=== PATIENT | male | born 1985 | race Hispanic/Latino ===

== ENCOUNTER 2021-10-16 03:49 | Inpatient (IN) | payer OTHER, SELFPAY ==
[2021-10-16] MEDS ORDERED: Norepinephrine 8 MG/0.9% NS 250 ML ONE (04:16)
[2021-10-16] MEDS ORDERED: Tranexamic Acid 1,000 MG/10 ML VIAL ONE (04:24)
[2021-10-16] MEDS ORDERED: Calcium Chloride 1 GM/10 ML Abboject SYRINGE ONE ×2 (04:24→05:09)
[2021-10-16] MEDS ORDERED: Sterile Water 10 ML ONE (04:24)
[2021-10-16 04:27] LABS: #Basophils 0.1 thou/uL (0.0-0.2); #Eosinphils 0.1 thou/uL (0.0-0.7); #Lymphocytes 2.5 thou/uL (1.20-3.40); #Monocytes 0.7 thou/uL (0.11-0.59); #Neutrophils 2.8 thou/uL (1.40-6.50); %Monocytes 11.7 % (0.0-10.0); %Neutrophils 45.4 % (42.0-75.0); Hemoglobin 12.8 g/dL (14.0-18.0); Mean Corpuscular HGB CONC 31.2 g/dL (32.0-36.0); Mean Corpuscular Hemoglobin 31.7 pg (27.0-31.0); Mean Platelet Volume 7.4 fL (7.4-10.4); Platelet Count 181 thou/uL (130-400); RBC Distribution Width 12.1 % (11.5-14.5); Red Blood Cell (RBC) Count 4.05 mill/uL (4.70-6.10); White Blood Cell (WBC) Count 6.2 thou/uL (4.8-10.8)
[2021-10-16] MEDS ORDERED: Sodium Bicarb 50 MEQ/50 ML Abboject 8.4% SYRINGE ONE ×4 (04:30→05:18)
[2021-10-16 04:37] LABS: ALT (SGPT) 67 U/L (8-55); AST (SGOT) 39 U/L (5-34); Albumin 2.9 g/dL (3.5-5.0); Alkaline Phosphatase 62 U/L (40-110); BUN (Urea Nitrogen) 16 mg/dL (8.9-20.6); Bilirubin, Total 0.4 mg/dL (0.2-1.2); Calc. Creatinine Clearance 0 mL/min (70-130); Calcium 8.7 mg/dL (7.8-10.44); Chloride 112 mmol/L (98-107); Globulin 2.1 g/dL (2.4-3.5); Glucose 123 mg/dL (70-105); Potassium 4.1 mmol/L (3.5-5.1)
[2021-10-16 04:43] LABS: Calcium, Ionized (arterial) 0.78 mmol/L (1.12-1.30); Carboxyhemoglobin (COHb) 1.9 gm% (0.0-3.0); Hemoglobin (Hb) 12.9 g/dL (14.0-18.0); O2 Tension (PaO2), arterial 390.9 mmHg (80.0-100.0); Potassium - ABG Lab 5.04 mmol/L (3.70-5.30)
[2021-10-16 04:46] LABS: Puncture Site ALINE
[2021-10-16] MEDS ORDERED: Promethazine HCl 25 MG/ML VIAL IM PRN (04:52)
[2021-10-16] MEDS ORDERED: Ondansetron PF 4 MG/2 ML Vial IVP PRN (04:52)
[2021-10-16] MEDS ORDERED: Dextrose 5% in Water 1,000 ML IV PRN (04:52)
[2021-10-16] MEDS ORDERED: HumaLOG 300 UNITS/3 ML VIAL SC PRN (04:52)
[2021-10-16] MEDS ORDERED: Acetaminophen 325 MG TAB PO PRN (04:52)
[2021-10-16] MEDS ORDERED: Lorazepam 2 MG/ML VIAL SLOW IVP PRN ×2 (04:52→11:15)
[2021-10-16] MEDS ORDERED: Dextrose 50% Abboject 50 ML SYRINGE SLOW IVP PRN (04:52)
[2021-10-16] MEDS ORDERED: hydrALAZINE 20 MG/ML VIAL SLOW IVP PRN (04:52)
[2021-10-16] MEDS ORDERED: Morphine 2 MG/ML VIAL SLOW IVP PRN (04:52)
[2021-10-16 05:11] LABS: Carbon Dioxide Less than 8 mmol/L (22-29); Sodium 151 mmol/L (136-145)
[2021-10-16] MEDS ORDERED: Calcium Chloride 1 GM/10 ML Abboject SYRINGE IVP SCH (05:15)
[2021-10-16] MEDS ORDERED: Boostrix 0.5 ML (Tdap) VIAL ONE (05:17)
[2021-10-16] MEDS ORDERED: ceFAZolin (BATCH) 2 GM/100 ML BAG ONE (05:17)
[2021-10-16 05:41] LABS: Hemoglobin 12.8 g/dL (14.0-18.0); Mean Corpuscular HGB CONC 32.7 g/dL (32.0-36.0); Mean Corpuscular Hemoglobin 31.5 pg (27.0-31.0); Mean Corpuscular Volume 96.2 fL (78.0-98.0); Mean Platelet Volume 7.8 fL (7.4-10.4); Platelet Count 103 thou/uL (130-400); RBC Distribution Width 13.8 % (11.5-14.5); Red Blood Cell (RBC) Count 4.06 mill/uL (4.70-6.10); White Blood Cell (WBC) Count 27.1 thou/uL (4.8-10.8)
[2021-10-16 06:04] LABS: Alcohol 82 mg/dL (Less than 10); Anion Gap 30 mmol/L (10-20); BUN (Urea Nitrogen) 16 mg/dL (8.9-20.6); Calc. Creatinine Clearance 0 mL/min (70-130); Calcium 10.1 mg/dL (7.8-10.44); Carbon Dioxide 13 mmol/L (22-29); Chloride 105 mmol/L (98-107); Glucose 183 mg/dL (70-105); Magnesium 3.2 mg/dL (1.6-2.6); Phosphorus 10.1 mg/dL (2.3-4.7); Potassium 5.2 mmol/L (3.5-5.1); Sodium 143 mmol/L (136-145)
[2021-10-16 06:05] LABS: Lactic Acid Greater than 13.4 mmol/L (0.5-2.2)
[2021-10-16 06:06] LABS: Band 24 % (5-11); Hypochromia SLIGHT = 6-15 cells (100X) (0-5/hpf); Lymphocytes 21 % (21-51); MDiff Complete? YES; Monocytes 2 % (0-10); Neutrophil 52 % (42-75); Platelet Morphology Comment Appears Decreased; Reactive Lymphocytes 1 % (0-10)
[2021-10-16] MEDS ORDERED: Heparin 10,000 UNITS/ 10 ML VIAL ONE (06:29)
[2021-10-16] MEDS ORDERED: Fentanyl 100 MCG/2 ML VIAL ONE (06:52)
[2021-10-16] MEDS ORDERED: Propofol 1,000 MG/100 ML VIAL IV ONE (08:28)
[2021-10-16 08:29] LABS: Actual Bicarbonate (HCO3a) 15.8 mEq/L (22-28); Base Excess (BEa) -12.4 mEq/L (-2.0 to +3.0); CO2 Tension 44.4 mmHg (35.0-45.0); Calcium, Ionized (arterial) 1.15 mmol/L (1.12-1.30); Carboxyhemoglobin (COHb) 0.3 gm% (0.0-3.0); Hemoglobin (Hb) 15.1 g/dL (14.0-18.0); O2 Tension (PaO2), arterial 91.7 mmHg (80.0-100.0)
[2021-10-16 08:31] LABS: Puncture Site Arterial Line; pH, Arterial 7.17 (7.35-7.45)
[2021-10-16] MEDS: Sodium Chloride 0.9% 1,000 ML IV SCH ×4 (09:02→17:49)
[2021-10-16 09:05] LABS: Critical Call Chem-Lactate HX; Lactic Acid 8.8 mmol/L (0.5-2.2)
[2021-10-16 09:09] LABS: INR-International Normal Ratio 1.8; Prothrombin Time 21.6 sec (12.0-14.7)
[2021-10-16 09:10] LABS: PTT 56.4 sec (22.9-36.1)
[2021-10-16] MEDS ORDERED: Iopamidol 370 76% 100 ML VIAL ONE ×2 (09:15→09:41)
[2021-10-16] MEDS ORDERED: Sodium Bicarb 50 MEQ/50 ML VIAL IVP SCH (09:45)
[2021-10-16 09:48] LABS: Hemoglobin 14.8 g/dL (14.0-18.0); Mean Corpuscular HGB CONC 33.1 g/dL (32.0-36.0); Mean Corpuscular Hemoglobin 30.6 pg (27.0-31.0); Mean Corpuscular Volume 92.5 fL (78.0-98.0); Mean Platelet Volume 7.3 fL (7.4-10.4); Platelet Count 103 thou/uL (130-400); RBC Distribution Width 14.5 % (11.5-14.5); Red Blood Cell (RBC) Count 4.84 mill/uL (4.70-6.10); White Blood Cell (WBC) Count 25.1 thou/uL (4.8-10.8)
[2021-10-16] MEDS ORDERED: Ventilator Sedation Protocol 1 EACH FS SCH (10:00)
[2021-10-16 10:22] LABS: Chloride 104 mmol/L (98-107); Potassium 4.2 mmol/L (3.5-5.1); Sodium 138 mmol/L (136-145)
[2021-10-16 10:23] LABS: Glucose 240 mg/dL (70-105)
[2021-10-16] MEDS: Famotidine/PF 20 mg/2ml Vial SLOW IVP SCH ×2 (10:24→21:16)
[2021-10-16 10:25] LABS: Anion Gap 25 mmol/L (10-20); Carbon Dioxide 13 mmol/L (22-29)
[2021-10-16 10:27] LABS: BUN (Urea Nitrogen) 20 mg/dL (8.9-20.6)
[2021-10-16 10:29] LABS: Magnesium 3.7 mg/dL (1.6-2.6)
[2021-10-16 10:40] LABS: Band 13 % (5-11); Lymphocytes 11 % (21-51); MDiff Complete? YES; Monocytes 3 % (0-10); Neutrophil 73 % (42-75); Platelet Morphology Comment Appears Decreased
[2021-10-16 10:44] LABS: Calc. Creatinine Clearance 65 mL/min (70-130); Calcium 8.1 mg/dL (7.8-10.44); Phosphorus 7.7 mg/dL (2.3-4.7)
[2021-10-16 11:05] LABS: Actual Bicarbonate (HCO3a) 17.3 mEq/L (22-28); Base Excess (BEa) -8.2 mEq/L (-2.0 to +3.0); CO2 Tension 35.9 mmHg (35.0-45.0); Calcium, Ionized (arterial) 1.13 mmol/L (1.12-1.30); Carboxyhemoglobin (COHb) 0.3 gm% (0.0-3.0); Hemoglobin (Hb) 16.1 g/dL (14.0-18.0); O2 Tension (PaO2), arterial 227.2 mmHg (80.0-100.0)
[2021-10-16 11:07] LABS: ALV-art Gradient 369.625 mmHg (0-20); Puncture Site Arterial Line
[2021-10-16] MEDS ORDERED: Fentanyl BOLUS 250 ML IVPB PRN (11:15)
[2021-10-16] MEDS ORDERED: Morphine 4 MG/ML VIAL SLOW IVP PRN (11:15)
[2021-10-16] MEDS ORDERED: Propofol 1,000 MG/100 ML VIAL IV PRN (11:15)
[2021-10-16] MEDS ORDERED: fentaNYL Citrate-0.9 % NaCl/PF 100 ML IV SCH (11:15)
[2021-10-16] MEDS ORDERED: DISCONTINUE PREVIOUS NARCOTIC PAIN MEDICATIONS AND BENZODIAZEPINES FS SCH (11:15)
[2021-10-16] MEDS ORDERED: Propofol BOLUS 1,000 MG/100 ML VIAL IV PRN (11:15)
[2021-10-16 11:33] LABS: Bacteria/HPF None Seen HPF (None Seen); Bilirubin Negative (Negative); Blood, Urine 3+ (Negative); Clarity Turbid (Clear); Glucose, Urine (Dipstick) 300 mg/dL (Negative); Ketone, Urine Negative (Negative); Leukocyte Negative Leu/uL (Negative); Nitrite Negative (Negative); Protein, Urine (Dipstick) 100 mg/dL (Neg-Trace); Specific Gravity, Urine 1.017 (1.002-1.036); Squamous Epithelial 0-3 HPF (0-3); Urobilinogen Normal mg/dL (Less than 2); WBC/HPF 0-3 HPF (0-3)
[2021-10-16] MEDS: Cefepime 2 GM in Sodium Chloride 0.9% 100 ML IVPB SCH ×2 (11:36→23:54)
[2021-10-16] MEDS ORDERED: VANCOMYCIN 2 GRAM/500 ML BAG 2 GM in Premix Bag 1 BAG IVPB SCH (12:00)
[2021-10-16 12:10] LABS: SARS-CoV-2 NAA Rapid Test DETECTED (NotDetected)
[2021-10-16 14:45] LABS: Amphetamine Detected (NotDetected); Barbiturates Screen Not Detected (NotDetected); Benzodiazepine Screen Not Detected (NotDetected); Cocaine Metabolite Screen Detected (NotDetected); Methadone Not Detected (NotDetected); Methamphetamine Detected (NotDetected); Opiate Screen Not Detected (NotDetected); Oxycodone Screen Not Detected (NotDetected); Phencyclidine (PCP) Not Detected (NotDetected); THC/Cannabinoid Screen Detected (NotDetected); Tricyclic Screen Not Detected (NotDetected)
[2021-10-16] MEDS ORDERED: Sodium Chloride 0.9% 1,000 ML IV SCH ×2 (15:15→18:00)
[2021-10-16 16:36] LABS: Hemoglobin 15.7 g/dL (14.0-18.0)
[2021-10-16 17:13] LABS: Lactic Acid 7.4 mmol/L (0.5-2.2)
[2021-10-16] MEDS ORDERED: Sodium Bicarbonate 100 MEQ in Dextrose 5% in Water 1,000 ML FS SCH (18:30)
[2021-10-17 00:20] LABS: Lactic Acid 12.4 mmol/L (0.5-2.2)
[2021-10-17] MEDS ORDERED: Sodium Chloride 0.9% 1,000 ML IV SCH ×2 (01:00)
[2021-10-17 01:19] LABS: Actual Bicarbonate (HCO3a) 13.2 mEq/L (22-28); Base Excess (BEa) -12.2 mEq/L (-2.0 to +3.0); Calcium, Ionized (arterial) 0.91 mmol/L (1.12-1.30); Carboxyhemoglobin (COHb) 0.1 gm% (0.0-3.0); Hemoglobin (Hb) 13.3 g/dL (14.0-18.0); O2 Tension (PaO2), arterial 97.1 mmHg (80.0-100.0); Potassium - ABG Lab 4.61 mmol/L (3.70-5.30); pH, Arterial 7.28 (7.35-7.45)
[2021-10-17 01:22] LABS: Puncture Site Arterial Line
[2021-10-17 01:38] LABS: Hemoglobin 13.3 g/dL (14.0-18.0); Mean Corpuscular Hemoglobin 31.7 pg (27.0-31.0); Mean Corpuscular Volume 93.4 fL (78.0-98.0); Mean Platelet Volume 8.4 fL (7.4-10.4); Platelet Count 78 thou/uL (130-400); RBC Distribution Width 14.8 % (11.5-14.5); White Blood Cell (WBC) Count 30.7 thou/uL (4.8-10.8)
[2021-10-17 01:42] LABS: Prothrombin Time 49.9 sec (12.0-14.7)
[2021-10-17 01:43] LABS: PTT 49.5 sec (22.9-36.1)
[2021-10-17 01:47] LABS: Fibrinogen 127 mg/dL (253-463)
[2021-10-17 01:48] LABS: INR-International Normal Ratio 5.3
[2021-10-17 01:58] LABS: Band 36 % (5-11); Eosinophils 1 % (0-10); Lymphocytes 3 % (21-51); MDiff Complete? YES; Metamyelocyte 6 % (0-0); Monocytes 1 % (0-10); Neutrophil 53 % (42-75); Platelet Morphology Comment Appears Decreased; RBC Morphology Normal
[2021-10-17 01:59] LABS: Anion Gap 25 mmol/L (10-20); BUN (Urea Nitrogen) 36 mg/dL (8.9-20.6); Calc. Creatinine Clearance 35 mL/min (70-130); Calcium 6.4 mg/dL (7.8-10.44); Carbon Dioxide 12 mmol/L (22-29); Chloride 111 mmol/L (98-107); Glucose 83 mg/dL (70-105); Magnesium 2.8 mg/dL (1.6-2.6); Phosphorus 7.7 mg/dL (2.3-4.7); Potassium 4.8 mmol/L (3.5-5.1); Sodium 143 mmol/L (136-145)
[2021-10-17 02:24] LABS: CK (CPK) Greater than 40000 U/L (30-200)
[2021-10-17] MEDS ORDERED: Calcium Chloride 13.6 MEQ in Sodium Chloride 0.9% 100 ML IVPB SCH (03:00)
[2021-10-17] MEDS: Sodium Chloride 0.9% 1,000 ML IV SCH (03:19)
[2021-10-17 03:53] LABS: ALT (SGPT) 1765 U/L (8-55); AST (SGOT) 2477 U/L (5-34); Albumin 2.9 g/dL (3.5-5.0); Alkaline Phosphatase 87 U/L (40-110); Anion Gap 25 mmol/L (10-20); BUN (Urea Nitrogen) 37 mg/dL (8.9-20.6); Bilirubin, Direct 1.8 mg/dL (0.1-0.3); Bilirubin, Total 2.6 mg/dL (0.2-1.2); Calc. Creatinine Clearance 35 mL/min (70-130); Calcium 6.4 mg/dL (7.8-10.44); Carbon Dioxide 13 mmol/L (22-29); Chloride 110 mmol/L (98-107); Glucose 63 mg/dL (70-105); Lipase 34 U/L (8-78); Magnesium 2.7 mg/dL (1.6-2.6); Potassium 5.7 mmol/L (3.5-5.1); Protein, Total 4.8 g/dL (6.0-8.3); Sodium 142 mmol/L (136-145)
[2021-10-17 03:56] LABS: Band 39 % (5-11); Hemoglobin 13.3 g/dL (14.0-18.0); Lymphocytes 2 % (21-51); MDiff Complete? YES; Mean Corpuscular HGB CONC 33.2 g/dL (32.0-36.0); Mean Corpuscular Hemoglobin 31.3 pg (27.0-31.0); Mean Corpuscular Volume 94.5 fL (78.0-98.0); Mean Platelet Volume 8.6 fL (7.4-10.4); Metamyelocyte 6 % (0-0); Monocytes 2 % (0-10); Neutrophil 51 % (42-75); Platelet Count 92 thou/uL (130-400); Platelet Morphology Comment Appears Adequate; RBC Morphology Normal; Red Blood Cell (RBC) Count 4.26 mill/uL (4.70-6.10); White Blood Cell (WBC) Count 30.8 thou/uL (4.8-10.8)
[2021-10-17 03:57] LABS: Phosphorus 7.4 mg/dL (2.3-4.7)
[2021-10-17 07:41] LABS: Actual Bicarbonate (HCO3a) 13.2 mEq/L (22-28); Base Excess (BEa) -11.8 mEq/L (-2.0 to +3.0); CO2 Tension 28.3 mmHg (35.0-45.0); Calcium, Ionized (arterial) 0.91 mmol/L (1.12-1.30); Carboxyhemoglobin (COHb) 0.3 gm% (0.0-3.0); Hemoglobin (Hb) 13.2 g/dL (14.0-18.0); Potassium - ABG Lab 5.98 mmol/L (3.70-5.30); pH, Arterial 7.29 (7.35-7.45)
[2021-10-17 07:42] LABS: ALV-art Gradient 147.825 mmHg (0-20); Puncture Site Arterial Line
[2021-10-17 08:33] LABS: Lactic Acid 8.7 mmol/L (0.5-2.2)
[2021-10-17] MEDS: Sodium Bicarbonate 150 MEQ in Dextrose 5% in Water 1,000 ML IV SCH ×3 (09:09→18:21)
[2021-10-17] MEDS: Famotidine/PF 20 mg/2ml Vial SLOW IVP SCH (09:09)
[2021-10-17] MEDS ORDERED: Promethazine HCl 25 MG/ML VIAL IM PRN (10:19)
[2021-10-17] MEDS ORDERED: diphenhydrAMINE 50 MG/ML VIAL IVP PRN (10:19)
[2021-10-17] MEDS ORDERED: diphenhydrAMINE 50 MG/ML VIAL IM PRN (10:19)
[2021-10-17] MEDS ORDERED: diphenhydrAMINE 25 MG CAP PO PRN (10:19)
[2021-10-17] MEDS ORDERED: Ondansetron PF 4 MG/2 ML Vial IVP PRN (10:19)
[2021-10-17] MEDS ORDERED: HYDROmorphone 10 mg/100 ml CADD IVPB PRN (10:19)
[2021-10-17] MEDS ORDERED: Zolpidem Tartrate 5 MG TAB PO PRN (10:19)
[2021-10-17] MEDS ORDERED: Naloxone HCl 0.4 mg/ml Vial IV PRN (10:19)
[2021-10-17] MEDS ORDERED: Communication Order-Pharmacy FS SCH (10:30)
[2021-10-17] MEDS: Cefepime 2 GM in Sodium Chloride 0.9% 100 ML IVPB SCH (11:29)
[2021-10-17] MEDS ORDERED: VANCOMYCIN 2 GRAM/500 ML BAG 2 GM in Premix Bag 1 BAG IVPB SCH (12:00)
[2021-10-17 12:23] LABS: Vancomycin, Random 32.4 ug/mL (See Comment)
[2021-10-17] MEDS ORDERED: DEXTROSE 10% IV SCH (13:00)
[2021-10-17] MEDS ORDERED: SODIUM BICARBONATE IV SCH (13:00)
[2021-10-17] MEDS ORDERED: WATER IV SCH (13:00)
[2021-10-17] MEDS ORDERED: Calcium Chloride 1 GM/10 ML Abboject SYRINGE IVP SCH (15:45)
[2021-10-17 16:02] LABS: Anion Gap 27 mmol/L (10-20); BUN (Urea Nitrogen) 46 mg/dL (8.9-20.6); Calc. Creatinine Clearance 27 mL/min (70-130); Calcium 6.3 mg/dL (7.8-10.44); Carbon Dioxide 15 mmol/L (22-29); Chloride 103 mmol/L (98-107); Potassium 5.7 mmol/L (3.5-5.1); Sodium 139 mmol/L (136-145)
[2021-10-17 16:14] LABS: Glucose 48 mg/dL (70-105)
[2021-10-17] MEDS ORDERED: Sodium Bicarb 50 MEQ/50 ML VIAL IVP SCH (16:15)
[2021-10-17] MEDS ORDERED: Dextrose 5% in Water 1,000 ML IV PRN (16:33)
[2021-10-17] MEDS ORDERED: Dextrose 50% Abboject 50 ML SYRINGE SLOW IVP PRN (16:33)
[2021-10-17] MEDS ORDERED: Dextrose 10% in Water 250 ML IVPB SCH (17:15)
[2021-10-18] MEDS: Sodium Bicarbonate 150 MEQ in Dextrose 5% in Water 1,000 ML IV SCH ×5 (00:09→20:15)
[2021-10-18] MEDS: Cefepime 2 GM in Sodium Chloride 0.9% 100 ML IVPB SCH (00:17)
[2021-10-18 05:35] LABS: PTT 64.3 sec (22.9-36.1); Prothrombin Time 94.7 sec (12.0-14.7)
[2021-10-18 05:48] LABS: INR-International Normal Ratio 11.9
[2021-10-18 05:54] LABS: Albumin 2.4 g/dL (3.5-5.0); Alkaline Phosphatase 188 U/L (40-110); Anion Gap 27 mmol/L (10-20); BUN (Urea Nitrogen) 48 mg/dL (8.9-20.6); Bilirubin, Total 4.9 mg/dL (0.2-1.2); Calc. Creatinine Clearance 23 mL/min (70-130); Carbon Dioxide 20 mmol/L (22-29); Chloride 91 mmol/L (98-107); Globulin 1.7 g/dL (2.4-3.5); Glucose 76 mg/dL (70-105); Protein, Total 4.1 g/dL (6.0-8.3); Sodium 133 mmol/L (136-145)
[2021-10-18 06:00] LABS: AST (SGOT) Greater than 3500 U/L (5-34); Calcium 5.4 mg/dL (7.8-10.44)
[2021-10-18 06:01] LABS: Band 43 % (5-11); Hemoglobin 10.4 g/dL (14.0-18.0); Hypochromia SLIGHT = 6-15 cells (100X) (0-5/hpf); Lymphocytes 5 % (21-51); MDiff Complete? YES; Mean Corpuscular HGB CONC 34.5 g/dL (32.0-36.0); Mean Corpuscular Hemoglobin 32.3 pg (27.0-31.0); Mean Corpuscular Volume 93.8 fL (78.0-98.0); Mean Platelet Volume 9.9 fL (7.4-10.4); Metamyelocyte 1 % (0-0); Monocytes 3 % (0-10); Neutrophil 47 % (42-75); Platelet Count 68 thou/uL (130-400); Platelet Morphology Comment Appears Decreased; RBC Distribution Width 15.1 % (11.5-14.5); Reactive Lymphocytes 1 % (0-10); Red Blood Cell (RBC) Count 3.23 mill/uL (4.70-6.10); White Blood Cell (WBC) Count 16.7 thou/uL (4.8-10.8)
[2021-10-18 06:07] LABS: ALT (SGPT) 4373 U/L (8-55)
[2021-10-18] MEDS: Calcium Chloride 13.6 MEQ in Sodium Chloride 0.9% 100 ML IVPB SCH ×2 (06:46→07:57)
[2021-10-18 06:53] LABS: Magnesium 2.1 mg/dL (1.6-2.6); Phosphorus 10.7 mg/dL (2.3-4.7)
[2021-10-18] MEDS ORDERED: Heparin 10,000 UNITS/ 10 ML VIAL ONE (08:39)
[2021-10-18] MEDS ORDERED: Furosemide 40 MG/4 ML VIAL SLOW IVP SCH ×2 (08:45→11:00)
[2021-10-18] MEDS ORDERED: Famotidine/PF 20 mg/2ml Vial SLOW IVP SCH (09:00)
[2021-10-18] MEDS: Pantoprazole 40 MG VIAL IVP SCH (09:09)
[2021-10-18] MEDS ORDERED: Dextrose 10% in Water 500 ML IV SCH (09:15)
[2021-10-18] MEDS ORDERED: Xylocaine 1% w/ Epi 1:100K 10 ML VIAL ONE (11:08)
[2021-10-18] MEDS: Dextrose 10% in Water 500 ML IV SCH ×2 (11:59→20:17)
[2021-10-18 12:40] LABS: HBSAg Index 0.15 S/CO (0-0.99); Hep B Core Total Ab Non-Reactive (NonReactive); Hep B Core Total Index 0.31 S/CO (0-0.79); Hep B Surf Ag Non-Reactive S/CO (NonReactive)
[2021-10-18 12:56] LABS: Hep C IgG Ab Non-Reactive (NonReactive); Hep C Index 0.04 S/CO (0-0.79)
[2021-10-18 13:01] LABS: HBSAB Concentration 16.47 mIU/mL; Hep B Surf AB Reactive (NonReactive)
[2021-10-18] MEDS ORDERED: Morphine 2 MG/ML VIAL SLOW IVP PRN (15:20)
[2021-10-18] MEDS ORDERED: Cefepime 1 GM in Sodium Chloride 0.9% 100 ML IVPB SCH (23:59)
[2021-10-19] MEDS ORDERED: Fentanyl 100 MCG/2 ML VIAL ONE (02:26)
[2021-10-19] MEDS ORDERED: Fentanyl 100 MCG/2 ML VIAL SLOW IVP SCH (02:30)
[2021-10-19 02:43] LABS: Hemoglobin 10.8 g/dL (14.0-18.0); Mean Corpuscular HGB CONC 33.4 g/dL (32.0-36.0); Mean Corpuscular Hemoglobin 30.9 pg (27.0-31.0); Mean Corpuscular Volume 92.5 fL (78.0-98.0)
[2021-10-19 02:56] LABS: PTT 74.8 sec (22.9-36.1)
[2021-10-19 02:57] LABS: Prothrombin Time 91.7 sec (12.0-14.7)
[2021-10-19 02:59] LABS: Band 48 % (5-11); Lymphocytes 5 % (21-51); MDiff Complete? YES; Mean Platelet Volume 9.3 fL (7.4-10.4); Metamyelocyte 3 % (0-0); Monocytes 1 % (0-10); Neutrophil 41 % (42-75); Nucleated RBC 3 % (0); Platelet Count 62 thou/uL (130-400); Platelet Morphology Comment Appears Decreased; RBC Morphology Normal; Reactive Lymphocytes 1 % (0-10)
[2021-10-19 03:00] LABS: INR-International Normal Ratio 11.4
[2021-10-19 03:07] LABS: Lactic Acid 10.8 mmol/L (0.5-2.2)
[2021-10-19 03:15] LABS: Albumin 2.3 g/dL (3.5-5.0); Alkaline Phosphatase 258 U/L (40-110); Anion Gap 27 mmol/L (10-20); BUN (Urea Nitrogen) 41 mg/dL (8.9-20.6); Bilirubin, Total 7.7 mg/dL (0.2-1.2); Calc. Creatinine Clearance 24 mL/min (70-130); Carbon Dioxide 21 mmol/L (22-29); Chloride 83 mmol/L (98-107); Globulin 1.8 g/dL (2.4-3.5); Glucose 67 mg/dL (70-105); Magnesium 1.8 mg/dL (1.6-2.6); Potassium 4.2 mmol/L (3.5-5.1); Protein, Total 4.1 g/dL (6.0-8.3); Sodium 127 mmol/L (136-145)
[2021-10-19] MEDS: Sodium Bicarbonate 150 MEQ in Dextrose 5% in Water 1,000 ML IV SCH (03:17)
[2021-10-19 03:20] LABS: ALT (SGPT) 7752 U/L (8-55)
[2021-10-19 03:37] LABS: AST (SGOT) Greater than 3500 U/L (5-34); Bilirubin, Direct 5.1 mg/dL (0.1-0.3); Calcium 5.2 mg/dL (7.8-10.44); Phosphorus 9.1 mg/dL (2.3-4.7)
[2021-10-19 03:38] LABS: Uric Acid 13.5 mg/dL (3.5-7.2)
[2021-10-19] MEDS: Morphine 4 MG/ML VIAL SLOW IVP PRN ×2 (03:44→05:58)
[2021-10-19] MEDS ORDERED: Colchicine 0.6 MG TAB PO SCH (04:00)
[2021-10-19] MEDS ORDERED: Calcium Chloride 27.2 MEQ in Sodium Chloride 0.9% 250 ML 250 ML IVPB SCH (04:15)
[2021-10-19 08:24] LABS: Glucose 8 mg/dL (70-105)
[2021-10-19] MEDS ORDERED: Heparin 10,000 UNITS/ 10 ML VIAL ONE ×2 (08:47→08:51)
[2021-10-19] MEDS ORDERED: Phytonadione 10 MG/ML AMP SLOW IVP SCH (09:15)
[2021-10-19 09:19] LABS: Albumin 2.6 g/dL (3.5-5.0); Alkaline Phosphatase 304 U/L (40-110); Anion Gap 34 mmol/L (10-20); BUN (Urea Nitrogen) 42 mg/dL (8.9-20.6); Bilirubin, Total 8.5 mg/dL (0.2-1.2); Calc. Creatinine Clearance 22 mL/min (70-130); Carbon Dioxide 16 mmol/L (22-29); Chloride 84 mmol/L (98-107); Globulin 1.9 g/dL (2.4-3.5); Magnesium 1.9 mg/dL (1.6-2.6); Potassium 4.2 mmol/L (3.5-5.1); Protein, Total 4.5 g/dL (6.0-8.3); Sodium 130 mmol/L (136-145); Uric Acid 14.6 mg/dL (3.5-7.2)
[2021-10-19 09:25] LABS: ALT (SGPT) 8002 U/L (8-55)
[2021-10-19 09:26] LABS: Glucose 7 mg/dL (70-105)
[2021-10-19] MEDS: Pantoprazole 40 MG VIAL IVP SCH (09:36)
[2021-10-19] MEDS ORDERED: Phytonadione 10 MG in Sodium Chloride 0.9% 50 ML IVPB SCH (09:45)
[2021-10-19 09:52] LABS: AST (SGOT) Greater than 3500 U/L (5-34)
[2021-10-19] MEDS ORDERED: Fentanyl 250 MCG/5 ML VIAL ONE (10:04)
[2021-10-19] MEDS ORDERED: Midazolam HCl 5 mg/5 ml Vial ONE (10:04)
[2021-10-19] MEDS ORDERED: Ketamine 50 MG/ML (10ML VIAL) ONE (10:36)
[2021-10-19] MEDS ORDERED: Norepinephrine 4 MG/4 ML VIAL ONE (10:36)
[2021-10-19] MEDS ORDERED: Albumin 5% 0 ML ONE (10:37)
[2021-10-19] MEDS ORDERED: Sodium Bicarb 50 MEQ/50 ML Abboject 8.4% SYRINGE ONE ×3 (10:37→12:32)
[2021-10-19 11:01] LABS: Critical Call Chemistry M /TEST ADDED ON SPE
[2021-10-19 11:02] LABS: CK (CPK) Greater than 40000 U/L (30-200)
[2021-10-19] MEDS ORDERED: Dextrose 50% Abboject 50 ML SYRINGE ONE ×2 (11:05→11:22)
[2021-10-19] MEDS ORDERED: Rocuronium Bromide 10 MG/ML (10ML VIAL) ONE (11:10)
[2021-10-19] MEDS ORDERED: Atropine Sulfate 0.4 mg/1 ml Vial ONE (11:10)
[2021-10-19] MEDS ORDERED: Vecuronium 10 MG VIAL ONE (11:10)
[2021-10-19] MEDS ORDERED: Calcium Chloride 1 GM/10 ML Abboject SYRINGE ONE ×2 (11:22→12:32)
[2021-10-19] MEDS ORDERED: EPINEPHrine 1 MG/10 ML Abboject SYRINGE ONE (11:22)
[2021-10-19] MEDS ORDERED: Albuterol Sulfate HFA (OR ONLY) ONE (11:39)
[2021-10-19 12:48] LABS: Actual Bicarbonate (HCO3a) 12.9 mEq/L (22-28); Analyzer IN Cardio OR; Base Excess (BEa) -15.6 mEq/L (-2.0 to +3.0); CO2 Tension 42.3 mmHg (35.0-45.0); Calcium, Ionized (arterial) 0.84 mmol/L (1.12-1.30); Carboxyhemoglobin (COHb) 0.6 gm% (0.0-3.0); Hemoglobin (Hb) 7.3 g/dL (14.0-18.0); O2 Tension (PaO2), arterial 344.5 mmHg (80.0-100.0); Potassium - ABG Lab 3.95 mmol/L (3.70-5.30)
[2021-10-19 12:49] LABS: Puncture Site Arterial Line
[2021-10-19 13:09] LABS: Fibrinogen 170 mg/dL (253-463)
[2021-10-19 13:10] LABS: PTT 59.3 sec (22.9-36.1); Prothrombin Time 42.6 sec (12.0-14.7)
[2021-10-19 13:15] LABS: INR-International Normal Ratio 4.3
[2021-10-19] MEDS ORDERED: Ventilator Sedation Protocol 1 EACH FS SCH (13:21)
[2021-10-19] MEDS ORDERED: Calcium Chloride 1 GM/10 ML Abboject SYRINGE IVP SCH ×2 (13:30→20:00)
[2021-10-19] MEDS ORDERED: Fentanyl BOLUS 250 ML IVPB PRN (13:45)
[2021-10-19] MEDS ORDERED: Propofol BOLUS 1,000 MG/100 ML VIAL IV PRN (13:45)
[2021-10-19] MEDS ORDERED: fentaNYL Citrate-0.9 % NaCl/PF 100 ML IVPB SCH (13:45)
[2021-10-19] MEDS ORDERED: DISCONTINUE PREVIOUS NARCOTIC PAIN MEDICATIONS AND BENZODIAZEPINES FS SCH (13:45)
[2021-10-19] MEDS ORDERED: Morphine 2 MG/ML VIAL SLOW IVP PRN (13:45)
[2021-10-19] MEDS ORDERED: Propofol 1,000 MG/100 ML VIAL IV PRN (13:45)
[2021-10-19] MEDS ORDERED: Lorazepam 2 MG/ML VIAL SLOW IVP PRN (13:45)
[2021-10-19 13:55] LABS: ALT (SGPT) 4448 U/L (8-55)
[2021-10-19 13:59] LABS: AST (SGOT) Greater than 3500 U/L (5-34); Albumin 2.1 g/dL (3.5-5.0); Alkaline Phosphatase 199 U/L (40-110); Anion Gap 40 mmol/L (10-20); BUN (Urea Nitrogen) 43 mg/dL (8.9-20.6); Bilirubin, Total 5.8 mg/dL (0.2-1.2); Calc. Creatinine Clearance 23 mL/min (70-130); Calcium 7.9 mg/dL (7.8-10.44); Carbon Dioxide 16 mmol/L (22-29); Chloride 85 mmol/L (98-107); Globulin 1.5 g/dL (2.4-3.5); Glucose 40 mg/dL (70-105); Potassium 4.3 mmol/L (3.5-5.1); Protein, Total 3.6 g/dL (6.0-8.3); Sodium 137 mmol/L (136-145)
[2021-10-19] MEDS ORDERED: Dextrose 10% in Water 250 ML IV SCH (14:45)
[2021-10-19] MEDS: Dextrose 10% in Water 500 ML IV SCH (15:00)
[2021-10-19] MEDS ORDERED: Dextrose 10% in Water 1,000 ML IV SCH (15:15)
[2021-10-19 16:06] LABS: Anion Gap 41 mmol/L (10-20); BUN (Urea Nitrogen) 40 mg/dL (8.9-20.6); Calc. Creatinine Clearance 23 mL/min (70-130); Calcium 6.9 mg/dL (7.8-10.44); Carbon Dioxide 14 mmol/L (22-29); Chloride 84 mmol/L (98-107); Glucose 19 mg/dL (70-105); Phosphorus 13.6 mg/dL (2.3-4.7); Potassium 4.5 mmol/L (3.5-5.1); Sodium 134 mmol/L (136-145)
[2021-10-19 16:07] LABS: Actual Bicarbonate (HCO3a) 16.5 mEq/L (22-28); CO2 Tension 26.4 mmHg (35.0-45.0); Calcium, Ionized (arterial) 0.76 mmol/L (1.12-1.30); Carboxyhemoglobin (COHb) 0.3 gm% (0.0-3.0); O2 Tension (PaO2), arterial 140.3 mmHg (80.0-100.0); Potassium - ABG Lab 3.95 mmol/L (3.70-5.30); pH, Arterial 7.41 (7.35-7.45)
[2021-10-19 16:07] LABS: Hemoglobin 8.8 g/dL (14.0-18.0); Mean Corpuscular HGB CONC 33.6 g/dL (32.0-36.0); Mean Corpuscular Volume 92.3 fL (78.0-98.0); Mean Platelet Volume 9.5 fL (7.4-10.4); Platelet Count 76 thou/uL (130-400); Red Blood Cell (RBC) Count 2.84 mill/uL (4.70-6.10); White Blood Cell (WBC) Count 14.4 thou/uL (4.8-10.8)
[2021-10-19 16:08] LABS: Puncture Site LRA
[2021-10-19] MEDS: Midazolam HCl 2 mg/2 ml Vial ONE ×2 (16:25→17:18)
[2021-10-19 16:30] LABS: Band 25 % (5-11); Lymphocytes 5 % (21-51); MDiff Complete? YES; Metamyelocyte 4 % (0-0); Myelocyte 2 % (0-0); Neutrophil 64 % (42-75); Nucleated RBC 6 % (0); Platelet Morphology Comment Appears Decreased; Polychromasia SLIGHT = 2-3 cells (100X) (0-2/hpf); Tear Drops SLIGHT = 2-5 cells (100X) (0-1/hpf); Vacuoles SLIGHT
[2021-10-19] MEDS ORDERED: Multivitamins, Adult 10 ML, TRACE ELEMENT CONCENTRATE 1 ML in D15W-AA 5% w/o Lytes 2,00... IV SCH (18:00)
[2021-10-19] MEDS: Vasopressin 20 UNIT, Admixture Fee 1 EACH in Sodium Chloride 0.9% 50 ML IV SCH (18:38)
[2021-10-19 19:34] LABS: Lactic Acid 16.4 mmol/L (0.5-2.2)
[2021-10-19 19:48] LABS: Actual Bicarbonate (HCO3a) 19.6 mEq/L (22-28); Base Excess (BEa) -4.7 mEq/L (-2.0 to +3.0); CO2 Tension 33.3 mmHg (35.0-45.0); Calcium, Ionized (arterial) 0.81 mmol/L (1.12-1.30); Carboxyhemoglobin (COHb) 0.3 gm% (0.0-3.0); Hemoglobin (Hb) 10.2 g/dL (14.0-18.0); Potassium - ABG Lab 3.83 mmol/L (3.70-5.30); Puncture Site RBA; pH, Arterial 7.39 (7.35-7.45)
[2021-10-19 19:49] LABS: ALV-art Gradient 236.375 mmHg (0-20)
[2021-10-19] MEDS: Norepinephrine 8 MG/0.9% NS 250 ML IVPB PRN ×4 (19:54→20:48)
[2021-10-19 20:40] LABS: Hemoglobin 9.3 g/dL (14.0-18.0); Mean Corpuscular HGB CONC 33.1 g/dL (32.0-36.0); Mean Corpuscular Hemoglobin 30.6 pg (27.0-31.0); Mean Corpuscular Volume 92.6 fL (78.0-98.0); Mean Platelet Volume 9.8 fL (7.4-10.4); Platelet Count 87 thou/uL (130-400); Red Blood Cell (RBC) Count 3.04 mill/uL (4.70-6.10); White Blood Cell (WBC) Count 23.9 thou/uL (4.8-10.8)
[2021-10-19 20:45] LABS: INR-International Normal Ratio 3.5; Prothrombin Time 35.8 sec (12.0-14.7)
[2021-10-19 20:46] LABS: PTT 51.6 sec (22.9-36.1)
[2021-10-19] MEDS: Norepinephrine 4 MG/4 ML VIAL ONE (20:49)
[2021-10-19 20:57] LABS: Anion Gap 29 mmol/L (10-20); BUN (Urea Nitrogen) 27 mg/dL (8.9-20.6); Calc. Creatinine Clearance 32 mL/min (70-130); Calcium 6.4 mg/dL (7.8-10.44); Carbon Dioxide 18 mmol/L (22-29); Chloride 91 mmol/L (98-107); Glucose 41 mg/dL (70-105); Magnesium 1.8 mg/dL (1.6-2.6); Potassium 4.2 mmol/L (3.5-5.1); Sodium 134 mmol/L (136-145)
[2021-10-19] MEDS ORDERED: Magnesium 2 GM/50 ML(in water) 3 GM in Premix Bag 1 BAG IVPB SCH (21:00)
[2021-10-19] MEDS ORDERED: Dextrose 50% Abboject 50 ML SYRINGE SLOW IVP SCH (21:00)
[2021-10-19] MEDS ORDERED: Magnesium Sulfate 3 GM in Sodium Chloride 0.9% 100 ML IVPB SCH (21:15)
[2021-10-19 21:18] LABS: Band 35 % (5-11); Hypochromia SLIGHT = 6-15 cells (100X) (0-5/hpf); Lymphocytes 1 % (21-51); MDiff Complete? YES; Monocytes 12 % (0-10); Neutrophil 51 % (42-75); Nucleated RBC 1 % (0); Platelet Morphology Comment Appears Adequate; Reactive Lymphocytes 1 % (0-10)
[2021-10-20] MEDS: Cefepime 1 GM in Sodium Chloride 0.9% 100 ML IVPB SCH
[2021-10-20] MEDS: Vasopressin 20 UNIT, Admixture Fee 1 EACH in Sodium Chloride 0.9% 50 ML IV SCH ×2 (01:37→20:00)
[2021-10-20 04:25] LABS: Phosphorus 6.7 mg/dL (2.3-4.7)
[2021-10-20 04:27] LABS: ALT (SGPT) 3604 U/L (8-55); Albumin 2.3 g/dL (3.5-5.0); Alkaline Phosphatase 236 U/L (40-110); Anion Gap 27 mmol/L (10-20); BUN (Urea Nitrogen) 34 mg/dL (8.9-20.6); Bilirubin, Total 9.2 mg/dL (0.2-1.2); Calc. Creatinine Clearance 25 mL/min (70-130); Carbon Dioxide 21 mmol/L (22-29); Chloride 89 mmol/L (98-107); Globulin 1.7 g/dL (2.4-3.5); Glucose 73 mg/dL (70-105); Magnesium 2.1 mg/dL (1.6-2.6); Potassium 5.1 mmol/L (3.5-5.1); Sodium 132 mmol/L (136-145); Uric Acid 11.1 mg/dL (3.5-7.2)
[2021-10-20 04:30] LABS: AST (SGOT) Greater than 3500 U/L (5-34)
[2021-10-20 04:31] LABS: Band 54 % (5-11); Hemoglobin 6.9 g/dL (14.0-18.0); Hypochromia SLIGHT = 6-15 cells (100X) (0-5/hpf); Lymphocytes 6 % (21-51); MDiff Complete? YES; Mean Corpuscular HGB CONC 33.6 g/dL (32.0-36.0); Mean Corpuscular Hemoglobin 31.2 pg (27.0-31.0); Mean Corpuscular Volume 92.9 fL (78.0-98.0); Mean Platelet Volume 9.7 fL (7.4-10.4); Monocytes 2 % (0-10); Neutrophil 38 % (42-75); Platelet Count 73 thou/uL (130-400); Platelet Morphology Comment Appears Decreased; White Blood Cell (WBC) Count 17.8 thou/uL (4.8-10.8)
[2021-10-20 04:41] LABS: INR-International Normal Ratio 3.1; PTT 45.8 sec (22.9-36.1); Prothrombin Time 32.4 sec (12.0-14.7)
[2021-10-20] MEDS ORDERED: Propofol 1,000 MG/100 ML VIAL IV ONE ×2 (07:35→15:54)
[2021-10-20 07:57] LABS: Actual Bicarbonate (HCO3a) 22.2 mEq/L (22-28); CO2 Tension 40.1 mmHg (35.0-45.0); Calcium, Ionized (arterial) 0.72 mmol/L (1.12-1.30); Carboxyhemoglobin (COHb) 0.3 gm% (0.0-3.0); Hemoglobin (Hb) 8.1 g/dL (14.0-18.0); O2 Tension (PaO2), arterial 76.1 mmHg (80.0-100.0); Potassium - ABG Lab 4.55 mmol/L (3.70-5.30); pH, Arterial 7.36 (7.35-7.45)
[2021-10-20] MEDS ORDERED: Midazolam HCl 2 mg/2 ml Vial IVP SCH (08:00)
[2021-10-20 08:29] LABS: ALV-art Gradient 158.975 mmHg (0-20); Puncture Site RRA
[2021-10-20 08:54] LABS: Mean Corpuscular HGB CONC 33.6 g/dL (32.0-36.0); Mean Corpuscular Hemoglobin 31.3 pg (27.0-31.0); Mean Corpuscular Volume 93.2 fL (78.0-98.0); Mean Platelet Volume 9.4 fL (7.4-10.4); Platelet Count 59 thou/uL (130-400); RBC Distribution Width 13.4 % (11.5-14.5); Red Blood Cell (RBC) Count 2.54 mill/uL (4.70-6.10)
[2021-10-20] MEDS ORDERED: Vecuronium 10 MG VIAL ONE ×2 (08:54→15:51)
[2021-10-20] MEDS: Pantoprazole 40 MG VIAL IVP SCH (09:05)
[2021-10-20 09:32] LABS: Band 53 % (5-11); Lymphocytes 3 % (21-51); MDiff Complete? YES; Metamyelocyte 2 % (0-0); Monocytes 4 % (0-10); Myelocyte 5 % (0-0); Neutrophil 33 % (42-75); Platelet Morphology Comment Appears Decreased; Polychromasia SLIGHT = 2-3 cells (100X) (0-2/hpf); Toxic Granulation SLIGHT
[2021-10-20] MEDS ORDERED: Heparin 10,000 UNITS/ 10 ML VIAL ONE (12:37)
[2021-10-20] MEDS: fentaNYL Citrate-0.9 % NaCl/PF 100 ML IVPB PRN (13:26)
[2021-10-20] MEDS ORDERED: SODIUM ACETATE IV SCH (14:00)
[2021-10-20] MEDS ORDERED: [UNRECOGNIZED DRUG - OTHER] IV SCH (14:00)
[2021-10-20] MEDS ORDERED: CALCIUM GLUCONATE IV SCH (14:00)
[2021-10-20] MEDS ORDERED: SODIUM CHLORIDE IV SCH (14:00)
[2021-10-20] MEDS ORDERED: Vecuronium 10 MG VIAL IV SCH (17:15)
[2021-10-20] MEDS ORDERED: Propofol BOLUS 1,000 MG/100 ML VIAL IV PRN (17:15)
[2021-10-20] MEDS ORDERED: Lorazepam 2 MG/ML VIAL SLOW IVP PRN (17:15)
[2021-10-20] MEDS ORDERED: Fentanyl BOLUS 250 ML IVPB PRN (17:15)
[2021-10-20] MEDS ORDERED: Morphine 4 MG/ML VIAL SLOW IVP PRN (17:15)
[2021-10-20 20:18] LABS: Hemoglobin 7.3 g/dL (14.0-18.0); Mean Corpuscular HGB CONC 33.6 g/dL (32.0-36.0); Mean Corpuscular Hemoglobin 31.4 pg (27.0-31.0); Mean Corpuscular Volume 93.5 fL (78.0-98.0); Mean Platelet Volume 9.9 fL (7.4-10.4); Platelet Count 52 thou/uL (130-400); RBC Distribution Width 13.6 % (11.5-14.5); Red Blood Cell (RBC) Count 2.31 mill/uL (4.70-6.10)
[2021-10-20 20:40] LABS: Band 34 % (5-11); Lymphocytes 8 % (21-51); MDiff Complete? YES; Metamyelocyte 3 % (0-0); Monocytes 2 % (0-10); Myelocyte 6 % (0-0); Neutrophil 47 % (42-75); Platelet Morphology Comment Appears Decreased; Toxic Granulation SLIGHT
[2021-10-20 20:46] LABS: ALT (SGPT) 2167 U/L (8-55); AST (SGOT) 2849 U/L (5-34); Albumin 2.5 g/dL (3.5-5.0); Alkaline Phosphatase 230 U/L (40-110); Anion Gap 18 mmol/L (10-20); BUN (Urea Nitrogen) 26 mg/dL (8.9-20.6); Bilirubin, Total 12.1 mg/dL (0.2-1.2); Calc. Creatinine Clearance 33 mL/min (70-130); Calcium 6.3 mg/dL (7.8-10.44); Carbon Dioxide 25 mmol/L (22-29); Chloride 93 mmol/L (98-107); Glucose 91 mg/dL (70-105); Magnesium 1.9 mg/dL (1.6-2.6); Phosphorus 4.1 mg/dL (2.3-4.7); Potassium 4.3 mmol/L (3.5-5.1); Protein, Total 4.5 g/dL (6.0-8.3); Sodium 132 mmol/L (136-145)
[2021-10-21] MEDS: Cefepime 1 GM in Sodium Chloride 0.9% 100 ML IVPB SCH (00:16)
[2021-10-21] MEDS: Propofol 1,000 MG/100 ML VIAL IV PRN ×2 (04:12→16:08)
[2021-10-21 05:02] LABS: INR-International Normal Ratio 2.1; PTT 36.9 sec (22.9-36.1); Prothrombin Time 24.3 sec (12.0-14.7)
[2021-10-21 05:14] LABS: Lactic Acid 5.7 mmol/L (0.5-2.2)
[2021-10-21 05:15] LABS: ALT (SGPT) 1702 U/L (8-55); AST (SGOT) 1963 U/L (5-34); Albumin 2.3 g/dL (3.5-5.0); Alkaline Phosphatase 217 U/L (40-110); Anion Gap 15 mmol/L (10-20); BUN (Urea Nitrogen) 36 mg/dL (8.9-20.6); Bilirubin, Total 12.7 mg/dL (0.2-1.2); Calc. Creatinine Clearance 27 mL/min (70-130); Calcium 6.3 mg/dL (7.8-10.44); Carbon Dioxide 29 mmol/L (22-29); Chloride 92 mmol/L (98-107); Globulin 1.8 g/dL (2.4-3.5); Glucose 71 mg/dL (70-105); Magnesium 2.1 mg/dL (1.6-2.6); Potassium 3.9 mmol/L (3.5-5.1); Protein, Total 4.1 g/dL (6.0-8.3); Sodium 132 mmol/L (136-145)
[2021-10-21 05:27] LABS: Band 45 % (5-11); Eosinophils 1 % (0-10); Hemoglobin 6.7 g/dL (14.0-18.0); Lymphocytes 9 % (21-51); MDiff Complete? YES; Mean Corpuscular HGB CONC 33.6 g/dL (32.0-36.0); Mean Corpuscular Hemoglobin 31.6 pg (27.0-31.0); Mean Corpuscular Volume 94.1 fL (78.0-98.0); Mean Platelet Volume 9.7 fL (7.4-10.4); Metamyelocyte 4 % (0-0); Monocytes 1 % (0-10); Myelocyte 5 % (0-0); Neutrophil 35 % (42-75); Platelet Count 47 thou/uL (130-400); Platelet Morphology Comment Appears Decreased; RBC Distribution Width 13.5 % (11.5-14.5); White Blood Cell (WBC) Count 16.5 thou/uL (4.8-10.8)
[2021-10-21 05:30] LABS: CK (CPK) 37323 U/L (30-200)
[2021-10-21] MEDS: fentaNYL Citrate-0.9 % NaCl/PF 100 ML IVPB PRN (06:07)
[2021-10-21 07:30] LABS: Actual Bicarbonate (HCO3a) 27.6 mEq/L (22-28); Base Excess (BEa) 3.9 mEq/L (-2.0 to +3.0); CO2 Tension 37.3 mmHg (35.0-45.0); Calcium, Ionized (arterial) 0.78 mmol/L (1.12-1.30); Hemoglobin (Hb) 6.7 g/dL (14.0-18.0); O2 Tension (PaO2), arterial 84.2 mmHg (80.0-100.0); Potassium - ABG Lab 3.91 mmol/L (3.70-5.30); pH, Arterial 7.49 (7.35-7.45)
[2021-10-21 07:34] LABS: ALV-art Gradient 225.675 mmHg (0-20); Puncture Site LRA
[2021-10-21] MEDS ORDERED: Calcium Chloride 1 GM/10 ML Abboject SYRINGE IVP SCH (08:00)
[2021-10-21] MEDS: Pantoprazole 40 MG VIAL IVP SCH (08:17)
[2021-10-21 11:05] LABS: Glucose 78 mg/dL (70-105)
[2021-10-21 11:34] LABS: Hemoglobin 8.1 g/dL (14.0-18.0)
[2021-10-21] MEDS ORDERED: Heparin 10,000 UNITS/ 10 ML VIAL ONE (12:44)
[2021-10-21] MEDS ORDERED: CALCIUM GLUCONATE IV SCH (14:00)
[2021-10-21] MEDS ORDERED: SODIUM ACETATE IV SCH (14:00)
[2021-10-21] MEDS ORDERED: [UNRECOGNIZED DRUG - OTHER] IV SCH (14:00)
[2021-10-21] MEDS ORDERED: SODIUM CHLORIDE IV SCH (14:00)
[2021-10-21] MEDS: [UNRECOGNIZED DRUG - OTHER] IV SCH (15:16)
[2021-10-21] MEDS: SODIUM ACETATE IV SCH (15:16)
[2021-10-21] MEDS: CALCIUM GLUCONATE IV SCH (15:16)
[2021-10-21] MEDS: Vecuronium 10 MG VIAL IV SCH (15:18)
[2021-10-21] MEDS: Midazolam HCl 2 mg/2 ml Vial ONE (15:22)
[2021-10-21 20:54] LABS: Hemoglobin 10.3 g/dL (14.0-18.0)
[2021-10-22] MEDS: Cefepime 1 GM in Sodium Chloride 0.9% 100 ML IVPB SCH (00:07)
[2021-10-22] MEDS: fentaNYL Citrate-0.9 % NaCl/PF 100 ML IVPB PRN ×2 (02:23→17:26)
[2021-10-22] MEDS: Propofol 1,000 MG/100 ML VIAL IV PRN ×3 (02:42→19:29)
[2021-10-22 05:03] LABS: Prothrombin Time 23.4 sec (12.0-14.7)
[2021-10-22 05:04] LABS: PTT 36.7 sec (22.9-36.1)
[2021-10-22 05:05] LABS: ALT (SGPT) 960 U/L (8-55); AST (SGOT) 879 U/L (5-34); Albumin 2.5 g/dL (3.5-5.0); Alkaline Phosphatase 270 U/L (40-110); Anion Gap 16 mmol/L (10-20); BUN (Urea Nitrogen) 48 mg/dL (8.9-20.6); Bilirubin, Total 19.3 mg/dL (0.2-1.2); Calc. Creatinine Clearance 0 mL/min (70-130); Calcium 7.3 mg/dL (7.8-10.44); Carbon Dioxide 27 mmol/L (22-29); Chloride 95 mmol/L (98-107); Globulin 2.2 g/dL (2.4-3.5); Glucose 83 mg/dL (70-105); Magnesium 2.2 mg/dL (1.6-2.6); Potassium 4.1 mmol/L (3.5-5.1); Protein, Total 4.7 g/dL (6.0-8.3); Sodium 134 mmol/L (136-145)
[2021-10-22 05:13] LABS: Lactic Acid 5.2 mmol/L (0.5-2.2)
[2021-10-22 06:19] LABS: Band 52 % (5-11); Hemoglobin 10.2 g/dL (14.0-18.0); Lymphocytes 17 % (21-51); MDiff Complete? YES; Mean Corpuscular HGB CONC 33.2 g/dL (32.0-36.0); Mean Corpuscular Hemoglobin 30.4 pg (27.0-31.0); Mean Corpuscular Volume 91.5 fL (78.0-98.0); Mean Platelet Volume 10.1 fL (7.4-10.4); Metamyelocyte 2 % (0-0); Monocytes 3 % (0-10); Myelocyte 4 % (0-0); Neutrophil 22 % (42-75); Nucleated RBC 10 % (0); Platelet Count 39 thou/uL (130-400); Platelet Morphology Comment Appears Decreased; RBC Distribution Width 14.5 % (11.5-14.5); Red Blood Cell (RBC) Count 3.35 mill/uL (4.70-6.10); White Blood Cell (WBC) Count 34.9 thou/uL (4.8-10.8)
[2021-10-22 07:10] LABS: Actual Bicarbonate (HCO3a) 25.9 mEq/L (22-28); Base Excess (BEa) 1.6 mEq/L (-2.0 to +3.0); CO2 Tension 39.7 mmHg (35.0-45.0); Calcium, Ionized (arterial) 0.95 mmol/L (1.12-1.30); Carboxyhemoglobin (COHb) 0.9 gm% (0.0-3.0); Hemoglobin (Hb) 14.2 g/dL (14.0-18.0); O2 Tension (PaO2), arterial 76.4 mmHg (80.0-100.0); pH, Arterial 7.43 (7.35-7.45)
[2021-10-22 07:43] LABS: ALV-art Gradient 230.475 mmHg (0-20); Puncture Site RRA
[2021-10-22] MEDS ORDERED: Calcium Chloride 1 GM/10 ML Abboject SYRINGE IVP SCH (08:00)
[2021-10-22] MEDS: Pantoprazole 40 MG VIAL IVP SCH (08:16)
[2021-10-22] MEDS ORDERED: Heparin 10,000 UNITS/ 10 ML VIAL ONE (12:41)
[2021-10-22] MEDS: Vecuronium 10 MG VIAL IV SCH (13:35)
[2021-10-22] MEDS ORDERED: Vecuronium 10 MG VIAL IV SCH (13:45)
[2021-10-22] MEDS: SODIUM ACETATE IV SCH (14:46)
[2021-10-22] MEDS: CALCIUM GLUCONATE IV SCH (14:46)
[2021-10-22] MEDS: [UNRECOGNIZED DRUG - OTHER] IV SCH (14:46)
[2021-10-22] MEDS ORDERED: Acetaminophen 650 MG Suppository PR PRN (20:43)
[2021-10-22] MEDS ORDERED: Albumin 5% 500 ML ONE (20:54)
[2021-10-22 20:58] LABS: Actual Bicarbonate (HCO3a) 20.9 mEq/L (22-28); Base Excess (BEa) -4.4 mEq/L (-2.0 to +3.0); CO2 Tension 39.2 mmHg (35.0-45.0); Calcium, Ionized (arterial) 1.01 mmol/L (1.12-1.30); Carboxyhemoglobin (COHb) 0.1 gm% (0.0-3.0); Hemoglobin (Hb) 9.5 g/dL (14.0-18.0); O2 Tension (PaO2), arterial 90.7 mmHg (80.0-100.0); pH, Arterial 7.35 (7.35-7.45)
[2021-10-22 21:01] LABS: Puncture Site RRA
[2021-10-22 21:01] LABS: INR-International Normal Ratio 1.6; PTT 35.6 sec (22.9-36.1); Prothrombin Time 19.7 sec (12.0-14.7)
[2021-10-22 21:06] LABS: Band 41 % (5-11); Hemoglobin 11.2 g/dL (14.0-18.0); Lymphocytes 1 % (21-51); MDiff Complete? YES; Mean Corpuscular Hemoglobin 31.2 pg (27.0-31.0); Mean Corpuscular Volume 91.7 fL (78.0-98.0); Mean Platelet Volume 9.9 fL (7.4-10.4); Metamyelocyte 13 % (0-0); Monocytes 6 % (0-10); Myelocyte 18 % (0-0); Neutrophil 21 % (42-75); Nucleated RBC 11 % (0); Platelet Count 76 thou/uL (130-400); Platelet Morphology Comment Appears Decreased; Red Blood Cell (RBC) Count 3.61 mill/uL (4.70-6.10)
[2021-10-22] MEDS ORDERED: Norepinephrine 8 MG/0.9% NS 250 ML ONE (21:11)
[2021-10-22 21:12] LABS: Bilirubin, Total 25.3 mg/dL (0.2-1.2)
[2021-10-22] MEDS ORDERED: Calcium Chloride 13.6 MEQ in Sodium Chloride 0.9% 100 ML IVPB SCH ×2 (21:15→22:45)
[2021-10-22 21:22] LABS: Lactic Acid 7.4 mmol/L (0.5-2.2)
[2021-10-22 21:24] LABS: ALT (SGPT) 803 U/L (8-55); AST (SGOT) 728 U/L (5-34); Albumin 3.5 g/dL (3.5-5.0); Alkaline Phosphatase 316 U/L (40-110); Anion Gap 20 mmol/L (10-20); BUN (Urea Nitrogen) 37 mg/dL (8.9-20.6); Calc. Creatinine Clearance 0 mL/min (70-130); Calcium 8.7 mg/dL (7.8-10.44); Carbon Dioxide 23 mmol/L (22-29); Chloride 97 mmol/L (98-107); Globulin 3.2 g/dL (2.4-3.5); Glucose 66 mg/dL (70-105); Magnesium 2.2 mg/dL (1.6-2.6); Phosphorus 2.7 mg/dL (2.3-4.7); Potassium 4.3 mmol/L (3.5-5.1); Protein, Total 6.7 g/dL (6.0-8.3); Sodium 136 mmol/L (136-145)
[2021-10-22 21:28] LABS: CK (CPK) 16722 U/L (30-200)
[2021-10-22] MEDS ORDERED: Piperacillin/Tazobactam 3.375 GM in Sodium Chloride 0.9% 100 ML IVPB SCH (22:00)
[2021-10-23 05:30] LABS: INR-International Normal Ratio 2.5; Prothrombin Time 27.2 sec (12.0-14.7)
[2021-10-23 05:31] LABS: PTT 41.9 sec (22.9-36.1)
[2021-10-23 06:08] LABS: CK (CPK) 10762 U/L (30-200)
[2021-10-23] MEDS: fentaNYL Citrate-0.9 % NaCl/PF 100 ML IVPB PRN (06:21)
[2021-10-23 06:27] LABS: Hemoglobin 7.5 g/dL (14.0-18.0); Mean Corpuscular HGB CONC 32.2 g/dL (32.0-36.0); Mean Corpuscular Hemoglobin 29.9 pg (27.0-31.0); Mean Corpuscular Volume 92.8 fL (78.0-98.0); Platelet Count 46 thou/uL (130-400); White Blood Cell (WBC) Count 46.4 thou/uL (4.8-10.8)
[2021-10-23 06:49] LABS: ALT (SGPT) 480 U/L (8-55); AST (SGOT) 486 U/L (5-34); Albumin 2.6 g/dL (3.5-5.0); Alkaline Phosphatase 209 U/L (40-110); Anion Gap 17 mmol/L (10-20); BUN (Urea Nitrogen) 62 mg/dL (8.9-20.6); Bilirubin, Total 19.9 mg/dL (0.2-1.2); Calc. Creatinine Clearance 0 mL/min (70-130); Calcium 8.3 mg/dL (7.8-10.44); Carbon Dioxide 24 mmol/L (22-29); Chloride 96 mmol/L (98-107); Globulin 1.9 g/dL (2.4-3.5); Glucose 82 mg/dL (70-105); Magnesium 2.3 mg/dL (1.6-2.6); Phosphorus 3.8 mg/dL (2.3-4.7); Potassium 4.2 mmol/L (3.5-5.1); Protein, Total 4.5 g/dL (6.0-8.3); Sodium 133 mmol/L (136-145)
[2021-10-23 06:52] LABS: Band 48 % (5-11); Eosinophils 2 % (0-10); Lymphocytes 9 % (21-51); MDiff Complete? YES; Metamyelocyte 8 % (0-0); Monocytes 4 % (0-10); Myelocyte 10 % (0-0); Neutrophil 19 % (42-75); Nucleated RBC 10 % (0); Platelet Morphology Comment Appears Decreased; Polychromasia SLIGHT = 2-3 cells (100X) (0-2/hpf)
[2021-10-23] MEDS: Pantoprazole 40 MG VIAL IVP SCH (09:47)
[2021-10-23] MEDS: Piperacillin/Tazobactam 3.375 GM in Sodium Chloride 0.9% 100 ML IVPB SCH ×2 (09:47→21:11)
[2021-10-23] MEDS: [UNRECOGNIZED DRUG - OTHER] IV SCH (13:48)
[2021-10-23] MEDS: CALCIUM GLUCONATE IV SCH (13:48)
[2021-10-23] MEDS: SODIUM ACETATE IV SCH (13:48)
[2021-10-23 20:19] LABS: Hemoglobin 8.3 g/dL (14.0-18.0); Mean Corpuscular HGB CONC 32.7 g/dL (32.0-36.0); Mean Corpuscular Hemoglobin 30.2 pg (27.0-31.0); Mean Corpuscular Volume 92.5 fL (78.0-98.0); Mean Platelet Volume 6.5 fL (7.4-10.4); Platelet Count 45 thou/uL (130-400); RBC Distribution Width 15.1 % (11.5-14.5); Red Blood Cell (RBC) Count 2.75 mill/uL (4.70-6.10); White Blood Cell (WBC) Count 54.7 thou/uL (4.8-10.8)
[2021-10-23 20:37] LABS: ALT (SGPT) 421 U/L (8-55); AST (SGOT) 418 U/L (5-34); Albumin 2.5 g/dL (3.5-5.0); Alkaline Phosphatase 239 U/L (40-110); Anion Gap 16 mmol/L (10-20); BUN (Urea Nitrogen) 99 mg/dL (8.9-20.6); Bilirubin, Total 23.7 mg/dL (0.2-1.2); Calc. Creatinine Clearance 0 mL/min (70-130); Calcium 7.7 mg/dL (7.8-10.44); Carbon Dioxide 25 mmol/L (22-29); Globulin 2.2 g/dL (2.4-3.5); Glucose 109 mg/dL (70-105); Magnesium 2.7 mg/dL (1.6-2.6); Phosphorus 3.5 mg/dL (2.3-4.7); Potassium 4.2 mmol/L (3.5-5.1); Protein, Total 4.7 g/dL (6.0-8.3)
[2021-10-23 20:38] LABS: Band 38 % (5-11); Eosinophils 4 % (0-10); Lymphocytes 6 % (21-51); MDiff Complete? YES; Monocytes 4 % (0-10); Myelocyte 9 % (0-0); Neutrophil 39 % (42-75); Nucleated RBC 9 % (0); Platelet Morphology Comment Appears Decreased; Polychromasia SLIGHT = 2-3 cells (100X) (0-2/hpf)
[2021-10-23 20:41] LABS: Chloride 96 mmol/L (98-107); Sodium 133 mmol/L (136-145)
[2021-10-24] MEDS: Propofol 1,000 MG/100 ML VIAL IV PRN (00:34)
[2021-10-24] MEDS: fentaNYL Citrate-0.9 % NaCl/PF 100 ML IVPB PRN (00:34)
[2021-10-24 04:55] LABS: INR-International Normal Ratio 2.2; PTT 42.1 sec (22.9-36.1)
[2021-10-24 05:09] LABS: ALT (SGPT) 385 U/L (8-55); AST (SGOT) 389 U/L (5-34); Albumin 2.5 g/dL (3.5-5.0); Alkaline Phosphatase 243 U/L (40-110); Anion Gap 18 mmol/L (10-20); BUN (Urea Nitrogen) 114 mg/dL (8.9-20.6); Calc. Creatinine Clearance 0 mL/min (70-130); Calcium 7.8 mg/dL (7.8-10.44); Carbon Dioxide 25 mmol/L (22-29); Chloride 93 mmol/L (98-107); Globulin 2.2 g/dL (2.4-3.5); Glucose 105 mg/dL (70-105); Magnesium 2.8 mg/dL (1.6-2.6); Phosphorus 3.3 mg/dL (2.3-4.7); Potassium 4.3 mmol/L (3.5-5.1); Protein, Total 4.7 g/dL (6.0-8.3); Sodium 132 mmol/L (136-145)
[2021-10-24 05:17] LABS: Bilirubin, Total 25.2 mg/dL (0.2-1.2)
[2021-10-24 05:37] LABS: CK (CPK) 8697 U/L (30-200)
[2021-10-24 06:41] LABS: Hemoglobin 8.1 g/dL (14.0-18.0); Mean Corpuscular HGB CONC 31.7 g/dL (32.0-36.0); Mean Corpuscular Hemoglobin 29.4 pg (27.0-31.0); Mean Corpuscular Volume 92.7 fL (78.0-98.0); Mean Platelet Volume 10.5 fL (7.4-10.4); Platelet Count 54 thou/uL (130-400); RBC Distribution Width 15.1 % (11.5-14.5); Red Blood Cell (RBC) Count 2.76 mill/uL (4.70-6.10); White Blood Cell (WBC) Count 57.3 thou/uL (4.8-10.8)
[2021-10-24 07:07] LABS: Actual Bicarbonate (HCO3a) 22.3 mEq/L (22-28); Base Excess (BEa) -1.9 mEq/L (-2.0 to +3.0); CO2 Tension 35.9 mmHg (35.0-45.0); Hemoglobin (Hb) 11.2 g/dL (14.0-18.0); O2 Tension (PaO2), arterial 83.1 mmHg (80.0-100.0); pH, Arterial 7.41 (7.35-7.45)
[2021-10-24 07:08] LABS: Carboxyhemoglobin (COHb) 1.4 gm% (0.0-3.0)
[2021-10-24 07:34] LABS: Puncture Site RRA
[2021-10-24 07:35] LABS: ALV-art Gradient 228.525 mmHg (0-20)
[2021-10-24 08:13] LABS: Band 42 % (5-11); Bite Cells SLIGHT = 2-5 cells (100X) (0-1/hpf); Eosinophils 1 % (0-10); Lymphocytes 11 % (21-51); MDiff Complete? YES; Metamyelocyte 7 % (0-0); Monocytes 6 % (0-10); Myelocyte 4 % (0-0); Neutrophil 29 % (42-75); Nucleated RBC 7 % (0); Platelet Morphology Comment Appears Decreased; Polychromasia MARKED = >4 cells (100X) (0-2/hpf)
[2021-10-24] MEDS: Pantoprazole 40 MG VIAL IVP SCH (08:33)
[2021-10-24] MEDS ORDERED: Heparin 10,000 UNITS/ 10 ML VIAL ONE (08:56)
[2021-10-24] MEDS ORDERED: Midazolam HCl 2 mg/2 ml Vial ONE (09:39)
[2021-10-24] MEDS ORDERED: fentaNYL Citrate/PF 100 MCG/2 ML SYRINGE ONE ×2 (09:40)
[2021-10-24] MEDS ORDERED: Famotidine/PF 20 mg/2ml Vial ONE (09:40)
[2021-10-24] MEDS: Piperacillin/Tazobactam 3.375 GM in Sodium Chloride 0.9% 100 ML IVPB SCH ×2 (10:12→21:49)
[2021-10-24] MEDS ORDERED: Metoclopramide HCl 10 MG/2 ML VIAL ONE (10:19)
[2021-10-24] MEDS ORDERED: PROPOFOL 200 MG/20 ML VIAL ONE (10:19)
[2021-10-24] MEDS ORDERED: Rocuronium Bromide 10 MG/ML (10ML VIAL) ONE (10:19)
[2021-10-24] MEDS ORDERED: ePHEDrine 50 MG/ML VIAL ONE (10:19)
[2021-10-24] MEDS ORDERED: Ondansetron PF 4 MG/2 ML Vial ONE (10:19)
[2021-10-24] MEDS ORDERED: Glycopyrrolate 0.2 MG/ML 5 ML SYRINGE ONE (10:19)
[2021-10-24] MEDS ORDERED: PHENYLEPHRINE-NS 100 MCG/ML 10 ML SYRINGE ONE (10:19)
[2021-10-24 11:28] LABS: CK (CPK) 19806 U/L (30-200)
[2021-10-24] MEDS ORDERED: Albumin 5% 500 ML ONE (13:36)
[2021-10-24 13:42] LABS: Actual Bicarbonate (HCO3a) 19.9 mEq/L (22-28); Base Excess (BEa) -4.1 mEq/L (-2.0 to +3.0); CO2 Tension 32.2 mmHg (35.0-45.0); Calcium, Ionized (arterial) 0.99 mmol/L (1.12-1.30); Carboxyhemoglobin (COHb) 0.9 gm% (0.0-3.0); Hemoglobin (Hb) 10.1 g/dL (14.0-18.0); O2 Tension (PaO2), arterial 129.3 mmHg (80.0-100.0); Potassium - ABG Lab 4.08 mmol/L (3.70-5.30); pH, Arterial 7.41 (7.35-7.45)
[2021-10-24 13:47] LABS: Puncture Site RRA
[2021-10-24] MEDS ORDERED: Calcium Chloride 1 GM/10 ML Abboject SYRINGE ONE (13:49)
[2021-10-24] MEDS ORDERED: Calcium Chloride 1 GM/10 ML Abboject SYRINGE IVP SCH (14:15)
[2021-10-24] MEDS: CALCIUM GLUCONATE IV SCH (14:34)
[2021-10-24] MEDS: SODIUM ACETATE IV SCH (14:34)
[2021-10-24] MEDS: MULTIVITAMINS IV SCH (14:34)
[2021-10-24] MEDS: [UNRECOGNIZED DRUG - OTHER] IV SCH (14:34)
[2021-10-25 05:15] LABS: Anion Gap 19 mmol/L (10-20); BUN (Urea Nitrogen) 103 mg/dL (8.9-20.6); Calc. Creatinine Clearance 22 mL/min (70-130); Carbon Dioxide 23 mmol/L (22-29); Chloride 94 mmol/L (98-107); Glucose 109 mg/dL (70-105); Magnesium 2.5 mg/dL (1.6-2.6); Phosphorus 2.7 mg/dL (2.3-4.7); Potassium 4.1 mmol/L (3.5-5.1); Sodium 132 mmol/L (136-145)
[2021-10-25 05:27] LABS: Bilirubin, Total 29.5 mg/dL (0.2-1.2)
[2021-10-25 05:31] LABS: CK (CPK) 6455 U/L (30-200)
[2021-10-25 05:33] LABS: ALT (SGPT) 304 U/L (8-55); AST (SGOT) 356 U/L (5-34); Albumin 2.7 g/dL (3.5-5.0); Alkaline Phosphatase 254 U/L (40-110); Bilirubin, Direct Greater than 10.0 mg/dL (0.1-0.3); Lactic Acid 4.7 mmol/L (0.5-2.2)
[2021-10-25 05:36] LABS: Band 30 % (5-11); Hemoglobin 9.1 g/dL (14.0-18.0); Lymphocytes 10 % (21-51); MDiff Complete? YES; Mean Corpuscular Hemoglobin 30.1 pg (27.0-31.0); Mean Corpuscular Volume 91.1 fL (78.0-98.0); Mean Platelet Volume 10.3 fL (7.4-10.4); Metamyelocyte 4 % (0-0); Monocytes 7 % (0-10); Myelocyte 7 % (0-0); Neutrophil 42 % (42-75); Nucleated RBC 15 % (0); Platelet Count 55 thou/uL (130-400); Polychromasia MODERATE = 3-4 cells (100X) (0-2/hpf); RBC Distribution Width 15.4 % (11.5-14.5); Red Blood Cell (RBC) Count 3.01 mill/uL (4.70-6.10); White Blood Cell (WBC) Count 48.9 thou/uL (4.8-10.8)
[2021-10-25 07:33] LABS: Actual Bicarbonate (HCO3a) 21.7 mEq/L (22-28); CO2 Tension 30.5 mmHg (35.0-45.0); Calcium, Ionized (arterial) 0.99 mmol/L (1.12-1.30); Carboxyhemoglobin (COHb) 1.2 gm% (0.0-3.0); Hemoglobin (Hb) 12.6 g/dL (14.0-18.0); O2 Tension (PaO2), arterial 116.1 mmHg (80.0-100.0); Potassium - ABG Lab 4.02 mmol/L (3.70-5.30); pH, Arterial 7.47 (7.35-7.45)
[2021-10-25 07:41] LABS: ALV-art Gradient 202.275 mmHg (0-20); Puncture Site LRA
[2021-10-25] MEDS ORDERED: [UNRECOGNIZED DRUG - REMARK] FS PRN (09:46)
[2021-10-25] MEDS: Pantoprazole 40 MG VIAL IVP SCH (10:09)
[2021-10-25] MEDS: Piperacillin/Tazobactam 3.375 GM in Sodium Chloride 0.9% 100 ML IVPB SCH ×2 (10:10→22:55)
[2021-10-25 12:53] LABS: Analyzer IN Cardio OR; Base Excess (BEa) -19.6 mEq/L (-2.0 to +3.0); Calcium, Ionized (arterial) 0.93 mmol/L (1.12-1.30); Carboxyhemoglobin (COHb) 0.1 gm% (0.0-3.0); Hemoglobin (Hb) 8.4 g/dL (14.0-18.0); O2 Tension (PaO2), arterial 103.6 mmHg (80.0-100.0); Potassium - ABG Lab 4.11 mmol/L (3.70-5.30)
[2021-10-25 12:54] LABS: Puncture Site Arterial Line; pH, Arterial 6.87 (7.35-7.45)
[2021-10-25] MEDS: MULTIVITAMINS IV SCH (14:33)
[2021-10-25] MEDS: CALCIUM GLUCONATE IV SCH (14:33)
[2021-10-25] MEDS: [UNRECOGNIZED DRUG - OTHER] IV SCH (14:33)
[2021-10-25] MEDS: SODIUM ACETATE IV SCH (14:33)
[2021-10-25] MEDS ORDERED: Heparin 10,000 UNITS/ 10 ML VIAL ONE (14:38)
[2021-10-26 04:28] LABS: Phosphorus 3.2 mg/dL (2.3-4.7)
[2021-10-26 04:38] LABS: ALT (SGPT) 273 U/L (8-55); AST (SGOT) 335 U/L (5-34); Albumin 2.6 g/dL (3.5-5.0); Alkaline Phosphatase 228 U/L (40-110); Anion Gap 22 mmol/L (10-20); BUN (Urea Nitrogen) 109 mg/dL (8.9-20.6); Calc. Creatinine Clearance 22 mL/min (70-130); Carbon Dioxide 20 mmol/L (22-29); Chloride 95 mmol/L (98-107); Globulin 2.6 g/dL (2.4-3.5); Glucose 100 mg/dL (70-105); Magnesium 2.4 mg/dL (1.6-2.6); Potassium 4.6 mmol/L (3.5-5.1); Protein, Total 5.2 g/dL (6.0-8.3); Sodium 132 mmol/L (136-145)
[2021-10-26 04:47] LABS: Bilirubin, Total 32.9 mg/dL (0.2-1.2); CK (CPK) 4172 U/L (30-200)
[2021-10-26 05:48] LABS: Hemoglobin 9.4 g/dL (14.0-18.0); Mean Corpuscular HGB CONC 33.3 g/dL (32.0-36.0); Mean Corpuscular Hemoglobin 30.5 pg (27.0-31.0); Mean Corpuscular Volume 91.6 fL (78.0-98.0); Mean Platelet Volume 10.8 fL (7.4-10.4); Platelet Count 65 thou/uL (130-400); RBC Distribution Width 16.2 % (11.5-14.5); Red Blood Cell (RBC) Count 3.07 mill/uL (4.70-6.10); White Blood Cell (WBC) Count 44.3 thou/uL (4.8-10.8)
[2021-10-26 05:49] LABS: Anisocytosis SLIGHT = 6-15 cells (100X) (0-5/hpf); Band 11 % (5-11); Bite Cells SLIGHT = 2-5 cells (100X) (0-1/hpf); Lymphocytes 15 % (21-51); MDiff Complete? YES; Metamyelocyte 2 % (0-0); Monocytes 14 % (0-10); Myelocyte 2 % (0-0); Neutrophil 56 % (42-75); Nucleated RBC 16 % (0); Platelet Morphology Comment Appears Decreased; Polychromasia MODERATE = 3-4 cells (100X) (0-2/hpf)
[2021-10-26] MEDS ORDERED: GoLYTELY 4,000 ml Bottle PO SCH (08:30)
[2021-10-26] MEDS ORDERED: Heparin 10,000 UNITS/ 10 ML VIAL ONE (08:40)
[2021-10-26 09:00] LABS: INR-International Normal Ratio 2.6; Prothrombin Time 28.5 sec (12.0-14.7)
[2021-10-26] MEDS ORDERED: Saccharomyces boulardii 250 MG CAP PO SCH (09:00)
[2021-10-26 09:01] LABS: PTT 55.9 sec (22.9-36.1)
[2021-10-26] MEDS: Pantoprazole 40 MG VIAL IVP SCH (09:53)
[2021-10-26] MEDS: Piperacillin/Tazobactam 3.375 GM in Sodium Chloride 0.9% 100 ML IVPB SCH ×2 (09:54→21:46)
[2021-10-26] MEDS ORDERED: GoLYTELY 4,000 ml Bottle PER TUBE SCH (10:00)
[2021-10-26] MEDS: SODIUM ACETATE IV SCH (14:40)
[2021-10-26] MEDS: MULTIVITAMINS IV SCH (14:40)
[2021-10-26] MEDS: CALCIUM GLUCONATE IV SCH (14:40)
[2021-10-26] MEDS: [UNRECOGNIZED DRUG - OTHER] IV SCH (14:40)
[2021-10-26] MEDS ORDERED: Calcium Chloride 1 GM/10 ML Abboject SYRINGE IVP SCH (21:30)
[2021-10-26 22:35] LABS: Actual Bicarbonate (HCO3a) 19.6 mEq/L (22-28); CO2 Tension 34.6 mmHg (35.0-45.0); Calcium, Ionized (arterial) 1.15 mmol/L (1.12-1.30); Carboxyhemoglobin (COHb) 1.4 gm% (0.0-3.0); Hemoglobin (Hb) 9.2 g/dL (14.0-18.0); O2 Tension (PaO2), arterial 92.1 mmHg (80.0-100.0); Potassium - ABG Lab 4.06 mmol/L (3.70-5.30); pH, Arterial 7.37 (7.35-7.45)
[2021-10-26 22:37] LABS: Puncture Site LBA
[2021-10-27 05:08] LABS: ALT (SGPT) 202 U/L (8-55); AST (SGOT) 218 U/L (5-34); Albumin 2.5 g/dL (3.5-5.0); Alkaline Phosphatase 201 U/L (40-110); Protein, Total 5.1 g/dL (6.0-8.3)
[2021-10-27 05:13] LABS: Band 23 % (5-11); Eosinophils 1 % (0-10); Hemoglobin 8.6 g/dL (14.0-18.0); Lymphocytes 10 % (21-51); MDiff Complete? YES; Mean Corpuscular HGB CONC 33.3 g/dL (32.0-36.0); Mean Corpuscular Hemoglobin 30.7 pg (27.0-31.0); Mean Corpuscular Volume 92.1 fL (78.0-98.0); Mean Platelet Volume 10.7 fL (7.4-10.4); Metamyelocyte 1 % (0-0); Monocytes 9 % (0-10); Myelocyte 4 % (0-0); Neutrophil 51 % (42-75); Nucleated RBC 16 % (0); Platelet Count 61 thou/uL (130-400); Platelet Morphology Comment Appears Decreased; Polychromasia MODERATE = 3-4 cells (100X) (0-2/hpf); Red Blood Cell (RBC) Count 2.82 mill/uL (4.70-6.10); White Blood Cell (WBC) Count 33.5 thou/uL (4.8-10.8)
[2021-10-27 05:17] LABS: Bilirubin, Total 35.6 mg/dL (0.2-1.2)
[2021-10-27 05:53] LABS: Bilirubin, Direct Greater than 20.0 mg/dL (0.1-0.3)
[2021-10-27 06:56] LABS: Anion Gap 20 mmol/L (10-20); BUN (Urea Nitrogen) 99 mg/dL (8.9-20.6); Calc. Creatinine Clearance 25 mL/min (70-130); Calcium 7.7 mg/dL (7.8-10.44); Carbon Dioxide 20 mmol/L (22-29); Chloride 98 mmol/L (98-107); Glucose 127 mg/dL (70-105); Magnesium 2.3 mg/dL (1.6-2.6); Phosphorus 4.8 mg/dL (2.3-4.7); Potassium 4.1 mmol/L (3.5-5.1); Sodium 134 mmol/L (136-145)
[2021-10-27 07:43] LABS: Actual Bicarbonate (HCO3a) 19.7 mEq/L (22-28); Base Excess (BEa) -3.8 mEq/L (-2.0 to +3.0); CO2 Tension 30.1 mmHg (35.0-45.0); Calcium, Ionized (arterial) 0.97 mmol/L (1.12-1.30); Carboxyhemoglobin (COHb) 2.3 gm% (0.0-3.0); O2 Tension (PaO2), arterial 83.5 mmHg (80.0-100.0); Potassium - ABG Lab 3.85 mmol/L (3.70-5.30); pH, Arterial 7.43 (7.35-7.45)
[2021-10-27 07:53] LABS: ALV-art Gradient 235.375 mmHg (0-20); Puncture Site LRA
[2021-10-27] MEDS ORDERED: Calcium Chloride 1 GM/10 ML Abboject SYRINGE IVP SCH (08:00)
[2021-10-27] MEDS: Pantoprazole 40 MG VIAL IVP SCH (09:23)
[2021-10-27] MEDS: Floranex 1 GM Packet PER TUBE SCH (09:24)
[2021-10-27 11:32] VITALS: BMI 33.6
[2021-10-27] MEDS: Piperacillin/Tazobactam 3.375 GM in Sodium Chloride 0.9% 100 ML IVPB SCH ×2 (12:23→21:49)
[2021-10-27] MEDS: [UNRECOGNIZED DRUG - OTHER] IV SCH (16:17)
[2021-10-27] MEDS: SODIUM ACETATE IV SCH (16:17)
[2021-10-27] MEDS: CALCIUM GLUCONATE IV SCH (16:17)
[2021-10-28] MEDS: Norepinephrine 8 MG/0.9% NS 250 ML IVPB SCH ×3 (00:47→13:49)
[2021-10-28] MEDS: Piperacillin/Tazobactam 3.375 GM in Sodium Chloride 0.9% 100 ML IVPB SCH (10:45)
[2021-10-28] MEDS: Pantoprazole 40 MG VIAL IVP SCH (10:45)
[2021-10-28] MEDS: Floranex 1 GM Packet PER TUBE SCH (10:45)
[2021-10-28 14:38] VITALS: BP 84/41
[2021-10-28] MEDS: CALCIUM GLUCONATE IV SCH (14:49)
[2021-10-28] MEDS: SODIUM ACETATE IV SCH (14:49)
[2021-10-28] MEDS: [UNRECOGNIZED DRUG - OTHER] IV SCH (14:49)
[2021-10-28 16:29] VITALS: TEMP 98.5
== END 2021-10-28 16:31 | disposition expired | DRG 957 ==
LOC: ERS 03:49 → EDBD 03:49 → EEVIPCON 06:46 → SDC 06:46 → CCU 06:47
PROVIDERS: ADMIT Surgery; ATTEND Surgery
PROC: 04LK3DZ Occlusion of Right Femoral Artery with Intraluminal Device, Percutaneous Approach (ICD-10-PCS; principal; 2021-10-16)
PROC: 30233K1 Transfusion of Nonautologous Frozen Plasma into Peripheral Vein, Percutaneous Approach (ICD-10-PCS; 2021-10-16)
PROC: 30233N1 Transfusion of Nonautologous Red Blood Cells into Peripheral Vein, Percutaneous Approach (ICD-10-PCS; 2021-10-16)
PROC: 30233M1 Transfusion of Nonautologous Plasma Cryoprecipitate into Peripheral Vein, Percutaneous Approach (ICD-10-PCS; 2021-10-16)
PROC: 02HV33Z Insertion of Infusion Device into Superior Vena Cava, Percutaneous Approach (ICD-10-PCS; 2021-10-16)
PROC: B548ZZA Ultrasonography of Superior Vena Cava, Guidance (ICD-10-PCS; 2021-10-16)
PROC: 05JY3ZZ Inspection of Upper Vein, Percutaneous Approach (ICD-10-PCS; 2021-10-16)
PROC: 8E0ZXY6 Isolation (ICD-10-PCS; 2021-10-16)
PROC: 5A1945Z Respiratory Ventilation, 24-96 Consecutive Hours (ICD-10-PCS; 2021-10-16)
PROC: 0D9670Z Drainage of Stomach with Drainage Device, Via Natural or Artificial Opening (ICD-10-PCS; 2021-10-16)
PROC: 3E0436Z Introduction of Nutritional Substance into Central Vein, Percutaneous Approach (ICD-10-PCS; 2021-10-16)
PROC: 5A1D70Z Performance of Urinary Filtration, Intermittent, Less than 6 Hours Per Day (ICD-10-PCS; 2021-10-18)
PROC: 06HY33Z Insertion of Infusion Device into Lower Vein, Percutaneous Approach (ICD-10-PCS; 2021-10-18)
PROC: 0WJG0ZZ Inspection of Peritoneal Cavity, Open Approach (ICD-10-PCS; 2021-10-19)
PROC: 0W9G0ZZ Drainage of Peritoneal Cavity, Open Approach (ICD-10-PCS; 2021-10-19)
PROC: 0BH18EZ Insertion of Endotracheal Airway into Trachea, Via Natural or Artificial Opening Endoscopic (ICD-10-PCS; 2021-10-19)
PROC: 5A2204Z Restoration of Cardiac Rhythm, Single (ICD-10-PCS; 2021-10-19)
PROC: 5A12012 Performance of Cardiac Output, Single, Manual (ICD-10-PCS; 2021-10-19)
PROC: 3E043XZ Introduction of Vasopressor into Central Vein, Percutaneous Approach (ICD-10-PCS; 2021-10-19)
PROC: 5A1955Z Respiratory Ventilation, Greater than 96 Consecutive Hours (ICD-10-PCS; 2021-10-19)
PROC: 03HY32Z Insertion of Monitoring Device into Upper Artery, Percutaneous Approach (ICD-10-PCS; 2021-10-19)
PROC: 6A551Z2 Pheresis of Platelets, Multiple (ICD-10-PCS; 2021-10-21)
PROC: 0WJG0ZZ Inspection of Peritoneal Cavity, Open Approach (ICD-10-PCS; 2021-10-24)
DX: S75.091A Other specified injury of femoral artery, right leg, initial encounter (principal); U07.1 COVID-19; T79.A3XA Traumatic compartment syndrome of abdomen, initial encounter; J96.01 Acute respiratory failure with hypoxia; K72.01 Acute and subacute hepatic failure with coma; D65 Disseminated intravascular coagulation [defibrination syndrome]; T79.4XXA Traumatic shock, initial encounter; G93.41 Metabolic encephalopathy; K83.1 Obstruction of bile duct; N18.6 End stage renal disease; N17.9 Acute kidney failure, unspecified; D62 Acute posthemorrhagic anemia; E87.2 Acidosis; Z99.11 Dependence on respirator [ventilator] status; E87.1 Hypo-osmolality and hyponatremia; I47.2 Ventricular tachycardia; Z23 Encounter for immunization; Z66 Do not resuscitate; X95.9XXA Assault by unspecified firearm discharge, initial encounter; T79.6XXA Traumatic ischemia of muscle, initial encounter; R74.01 Elevation of levels of liver transaminase levels; E66.01 Morbid (severe) obesity due to excess calories; D63.1 Anemia in chronic kidney disease; E87.5 Hyperkalemia; E83.51 Hypocalcemia; M24.542 Contracture, left hand; M24.541 Contracture, right hand; E83.39 Other disorders of phosphorus metabolism; E87.70 Fluid overload, unspecified; R00.1 Bradycardia, unspecified; I46.2 Cardiac arrest due to underlying cardiac condition; Z68.33 Body mass index [BMI] 33.0-33.9, adult; Z99.2 Dependence on renal dialysis; Z78.1 Physical restraint status; Z79.899 Other long term (current) drug therapy
CPT/HCPCS: 36415; 36416; 36430; 36556; 36600; 37244; 51702; 61626; 70450; 70551; 71045; 72170; 74176; 75635; 75710; 78610; 80048; 80053; 80076; 80202; 80306; 80307; 81003; 81015; 82140; 82550; 82805; 83605; 83690; 83735; 84100; 84311; 84550; 85025; 85384; 85610; 85730; 86704; 86706; 86803; 86850; 86900; 86901; 87040; 87070; 87086; 87205; 87340; 90471; 90715; 90935; 93306; 93970; 94002; 94003; 96360; 96365; 96366; 96368; 96375; 96376; A9521; C1884; C9113; G0257; G0390; J0171; J0360; J0461; J0610; J0690; J0692; J1642; J1644; J1940; J2250; J2270; J2405; J2543; J2704; J2765; J3010; J3370; J3430; J3475; J3490; J7050; J7060; J7070; J7999; P9012; P9016; P9035; P9045; P9048; P9059; Q9967; S0028; U0002